=== PATIENT | female | born 1995 | race Hispanic/Latino ===

== ENCOUNTER 2024-09-11 12:37 | Emergency (ER) | payer OTHER, SELFPAY ==
--- NOTE | 2024-09-11 12:40 | ED.URI ---
HPI - URI/Sore Throat General Chief Complaint: Upper Respiratory Infection Stated Complaint: throat/chest tight Time Seen by Provider: 09/11/24 12:58 Source: patient and RN notes reviewed Mode of arrival: ambulatory Limitations: no limitations History of Present Illness HPI Narrative: 28-year-old female with history of diabetes presents with concern for 5 day history of sore throat, cough, chest congestion and chest tightness. She reports a history of asthma but she has not needed her inhaler. She reports she has prednisone at home sore use when needed but she has not taken. She denies fever, body aches, chills, sweats MD elicited complaint: cough and sore throat Related Data Home Medications Medication Instructions Recorded Confirmed subcutaneous insulin pump (iLet 04/21/24 04/21/24 Insulin Pump) albuterol sulfate 1.25 mg/3 mL 1.25 mg inhalation Q4-6H PRN 08/14/24 08/14/24 solution for nebulization albuterol sulfate 90 mcg/actuation 2 inh inhalation Q6H PRN 08/14/24 08/14/24 breath activated powder inhaler aripiprazole 2 mg tablet 2 mg PO DAILY 08/14/24 08/14/24 baclofen 10 mg tablet 10 mg PO BID PRN 08/14/24 08/14/24 blood-glucose sensor (Image Socketcom G7 08/14/24 08/14/24 Sensor device) duloxetine 60 mg capsule,delayed 60 mg PO DAILY 08/14/24 08/14/24 release gabapentin 300 mg capsule 300 mg PO DAILY 08/14/24 08/14/24 glucagon 3 mg/actuation nasal 3 mg intranasal ONCE 08/14/24 08/14/24 spray (Baqsimi) insulin lispro 100 unit/mL 1 sliding scale dose subcut 08/14/24 08/14/24 subcutaneous pen USEASDIRECTD levothyroxine 75 mcg tablet 75 mcg PO DAILY 08/14/24 08/14/24 meloxicam 15 mg tablet 15 mg PO DAILY 08/14/24 08/14/24 valacyclovir 500 mg tablet 500 mg PO DAILY PRN 08/14/24 08/14/24 Allergies Allergy/AdvReac Type Severity Reaction Status Date / Time latex Allergy Mild Unknown Verified 08/19/24 10:26 Review of Systems Review of Systems: CONSTITUTIONAL: Denies malaise, chills, sweats, or fever. EYES: Denies visual changes, redness, or discharge. ENT: Reports rhinorrhea, congestionotalgia and sore throat. CARDIOVASCULAR: Denies chest pain, palpitations, or edema. RESPIRATORY: Reports cough. Denies dyspnea. GASTROINTESTINAL: Denies abdominal pain, nausea, vomiting, diarrhea SKIN: Denies rash or itching. MUSCULOSKELETAL: Denies myalgia. NEUROLOGIC: Denies headache. All systems reviewed & are unremarkable except as noted in HPI and below PMFSH Past Medical History Medical History (Updated 09/11/24 @ 13:11 by Myriam Gage NP) Anxiety Asthma Chronic back pain Diabetic neuropathy HPV (human papilloma virus) infection HSV infection Hypothyroidism Scoliosis Type 1 diabetes Surgical History Surgical History (System 08/19/24 @ 10:26 by Dinah Rodriguez) History of appendectomy Family History Family History (System 08/19/24 @ 10:26 by Dinah Rodriguez) Other Breast cancer Grandparent Carcinoma of colon Social History Social History (System 08/19/24 @ 10:26 by Dinah Rodriguez) Smoking status: Never smoker Alcohol intake: current Substance use: current Substance use type: marijuana Do You Feel Safe in your Home?: Yes Lack of Transportation: No Lack of Food: Never True Current Housing: I Have Housing Concerned About Future Housing: No Difficulty Paying Gas/Electric Bills: YES Difficulty Paying for Meds: No Currently Unemployed: No Education: Trade/Vocational Certificate Difficulty w/ Childcare or Family Care: No Living arrangements: with family Occupation/Education: unemployed Gender identity (if verbalized by the patient): Female Sexual Orientation (if Verbalized by the Patient): Straight or Heterosexual Spiritual care concerns: No Agree to blood products: Yes Comments At time of signature, agree with nursing past medical, surgical, social and family history. There is no relevant family history pertinent to the presenting complaint Exam Narrative: GENERAL: Well-appearing, well-nourished, and in no acute distress. HEAD: Normocephalic EYES: PERRLA, conjunctivae clear ENT: Nares clear, turbinates edematous and erythematous, clear discharge. Mucous membranes moist. TM pearly gardner with dull light reflex bilaterally; no tragal tenderness. Oropharynx not erythematous without lesions. Tonsils not enlarged and without exudate, no drooling, no hoarseness, no trismus, uvula midline. NECK: Supple. No lymphadenopathy CHEST: Clear to auscultation, breath sounds equal. No wheezing, rhonchi, rales, or stridor. No respiratory distress, speaks in full sentences. HEART: Regular rate and rhythm. No murmur heard. SKIN: Warm, dry, no rash. NEURO: Alert and oriented x3. PSYCH: Normal mood and affect Course Course Emergency Course: Patient is aware of diagnosis, understands and agrees to treatment plan. Anticipatory guidance given. Patient agrees to follow-up as directed and is aware of reasons to seek care at the emergency department. Portions of this record may have been created with voice recognition software Level of Care: Express Care Visit Vital Signs Vital signs: Reviewed. MDM - URI/Sore Throat MDM Narrative Medical decision making narrative: Differential diagnosis considered: Severino virus, strep pharyngitis, allergic rhinitis, upper respiratory tract infection, sinusitis, rhinosinusitis, nasopharyngitis. viral pharyngitis, otitis media, otitis externa, pneumonia, bronchitis, viral cough syndrome, viral syndrome, and influenza. Exam findings show no acute concerns or changes; patient is non-toxic appearing and is in no distress. Patient is appropriate for outpatient treatment and follow-up. Lab Data Attestation: I reviewed the patient's lab results. Critical Care Time Critical Care Time Critical Care Time: No Discharge Plan Discharge Clinical Impression: Upper respiratory infection Patient Disposition: Home, Self-Care Condition: Stable Instructions: Upper Respiratory Infection (ED) Additional Instructions: Your rapid strep swab was negative today at [facility]. A throat culture will be sent to the laboratory for further testing. If the test is positive, you will receive a phone call within 48 hours and an appropriate antibiotic will be initiated at that time. Your symptoms are likely due to a viral illness, which is not treated with antibiotics. Viral symptoms can be present for up to a few weeks. -Alternate Tylenol and Motrin per package directions for fever or pain. -Antihistamine medication such as Benadryl at night and Zyrtec during the day can help improve symptoms. -Eat and drink things that are easy to swallow, like tea or soup, or popsicles to suck on. -Oral rinses such as: Salt water gargles and/or may use topical anesthetic (eg. Chloraseptic spray) or lozenges to relieve dryness or throat pain). -Frequent hand washing or hand controller instructor is one of the best ways to prevent spread of infection. -Follow up with primary care provider in 2-3 days if condition is not improving; or seek ER visit if you have trouble breathing, cannot drink enough fluids, have muffled voice, difficulty opening your mouth, or severe swelling. Prescriptions: New benzonatate 200 mg capsule 200 mg PO TID PRN (Reason: cough) Qty: 14 0RF No Action (DME) iLet Insulin Pump Misc MISCELLANEOUS gabapentin 300 mg capsule 300 mg PO DAILY meloxicam 15 mg tablet 15 mg PO DAILY aripiprazole 2 mg tablet 2 mg PO DAILY insulin lispro 100 unit/mL insulin pen 1 sliding scale dose subcut USEASDIRECTD (DME) Dexcom G7 Sensor Device See Rx Instructions .Route Rx Instructions: As directed Baqsimi 3 mg/actuation spray,non-aerosol 3 mg intranasal ONCE Rx Instructions: as a single dose duloxetine 60 mg capsule,delayed release(DR/EC) 60 mg PO DAILY valacyclovir 500 mg tablet 500 mg PO DAILY PRN levothyroxine 75 mcg tablet 75 mcg PO DAILY albuterol sulfate 90 mcg/actuation aerosol powdr breath activated 2 inh inhalation Q6H PRN albuterol sulfate 1.25 mg/3 mL solution for nebulization 1.25 mg inhalation Q4-6H PRN baclofen 10 mg tablet 10 mg PO BID PRN Follow-up/Referrals: UNKNOWN,DOCTOR [Non-Staff] - Stand Alone Forms: Work/School Release IP Time of Disposition: 13:13
[2024-09-11 12:43] VITALS: BP 141/65; PULSE 112; RESP 16; TEMP 36.7; O2SAT 99
[2024-09-11 13:05] LABS: EDSTREPNEGPOS1 Negative (Negative)
== END 2024-09-11 13:16 | disposition home or self-care (01) ==
PROVIDERS: Emergency Provider Nurse Practitioner
DX: J06.9 Acute upper respiratory infection, unspecified (principal); E10.9 Type 1 diabetes mellitus without complications; Z79.4 Long term (current) use of insulin; Z96.41 Presence of insulin pump (external) (internal); E03.9 Hypothyroidism, unspecified; J45.909 Unspecified asthma, uncomplicated
CPT/HCPCS: 87081; 87880; 99213; G0463